=== PATIENT | male | born 1970 | race Caucasian/White ===

== ENCOUNTER → 2021-04-02 | Day surgery (SDC) | payer BC ==
[~2021-04-02] MED LIST: PROTONIX 40 MG40 M1 PO; SINGULAIR5 MG PO; THORAZINE 25 MG25 MG PO
[2021-04-02 07:38] LABS: HEMOGLOBIN 17.1 gm/dl (14.0-17.5); RED BLOOD COUNT 5.48 M/UL (4.20-5.50); WHITE BLOOD COUNT 6.7 K/UL (4.5-11.0)
[2021-04-03 18:08] LABS: ENDOMYSIAL ANTIBODY IGA Negative (Negative); IMMUNOGLOBULIN A, QN, SERUM 242 mg/dL (90-386); T-TRANSGLUTAMINASE (TTG) IGA <2 U/mL (0-3)
== END | disposition home or self-care (01) ==
LOC: OR 07:00
PROVIDERS: Internal Medicine Gastroenterology
DX: K21.00 Gastro-esophageal reflux disease with esophagitis, without bleeding (principal); K29.50 Unspecified chronic gastritis without bleeding; K44.9 Diaphragmatic hernia without obstruction or gangrene; K22.2 Esophageal obstruction; R19.7 Diarrhea, unspecified; K91.5 Postcholecystectomy syndrome; E66.3 Overweight; Z88.8 Allergy status to other drugs, medicaments and biological substances; Z72.89 Other problems related to lifestyle; Z20.822 Contact with and (suspected) exposure to COVID-19
CPT/HCPCS: 36415; 80048; 80076; 82784; 83993; 85025; J2001; J2250; J2704; J7040

== ENCOUNTER → 2021-04-26 | Outpatient (CLI) | payer BC ==
[2021-04-27 08:14] LABS: ALPHA-1-ANTITRYPSIN, SERUM 120 mg/dL (101-187)
[2021-04-27 11:14] LABS: HBSAG SCREEN Negative (Negative); HEP A AB, IGM Negative (Negative); HEP B CORE AB, IGM Negative (Negative); HEP C VIRUS AB 0.2 (0.0-0.9)
[2021-04-27 16:11] LABS: MITOCHONDRIAL (M2) ANTIBODY <20.0 Units (0.0-20.0)
== END ==
LOC: US 07:37
PROVIDERS: Internal Medicine Gastroenterology
DX: R19.7 Diarrhea, unspecified (principal); K91.5 Postcholecystectomy syndrome; R79.89 Other specified abnormal findings of blood chemistry
CPT/HCPCS: 36415; 76705; 80048; 80074; 80076; 82103; 82550; 82728; 83540; 83550; 86038

== ENCOUNTER 2021-07-18 17:44 | Emergency (ER) | payer BC ==
[2021-07-18 18:44] LABS: HEMOGLOBIN 16.3 gm/dl (14.0-17.5); RED BLOOD COUNT 5.16 M/UL (4.20-5.50); WHITE BLOOD COUNT 9.8 K/UL (4.5-11.0)
[2021-07-18 19:06] LABS: BUN/CREATININE RATIO 7 (0-10)
[2021-07-18] MEDS ORDERED: BACTRIM DS TAB1 EACH PO (19:43)
== END 2021-07-18 21:00 | disposition home or self-care (01) ==
LOC: ER1 17:44
PROVIDERS: Nurse Practitioner
DX: L03.113 Cellulitis of right upper limb (principal); Z88.8 Allergy status to other drugs, medicaments and biological substances
CPT/HCPCS: 80053; 83605; 85025; 87040; 87070; 87077; 87186; 87205; 96374; 96375; 99283; J0696; J3370; J7030